=== PATIENT | female | born 1970 ===

== ENCOUNTER 2024-12-17 07:00 | Day surgery (SDC) | payer OTHER ==
[2024-12-14 14:22] VITALS: BP 125/79
[~2024-12-17] VITALS: Ht 157.5 cm; Wt 77.1 kg
[2024-12-17] MEDS ORDERED: POVIDONE-IODINE 118 ML BOTT TOP ONE (08:48)
[2024-12-17] MEDS ORDERED: KETOROLAC TROMETHAMINE 30 MG VIAL IV ONE (10:30)
[2024-12-17] MEDS ORDERED: KETOROLAC TROMETHAMINE 30 MG VIAL ONE (12:01)
== END 2024-12-17 14:30 | disposition home or self-care (01) ==
LOC: CIR.AMB 07:00
PROVIDERS: ATTEND Obstetrics & Gynecology
DX: N80.03 Adenomyosis of the uterus (principal); N93.8 Other specified abnormal uterine and vaginal bleeding; D25.0 Submucous leiomyoma of uterus; N84.0 Polyp of corpus uteri